=== PATIENT | male | born 1945 | race Caucasian/White ===

== ENCOUNTER → 2016-12-29 | Outpatient (CLI) | payer OTHER ==
--- NOTE | 2016-12-29 14:58 | RAD ---
EXAM: PET/CT SKULL BASE TO MID THIGH 12/29/2016. HISTORY: Liver mass, colon carcinoma. History of chemotherapy. COMPARISON: None. TECHNIQUE: CT was performed from the skull base through the mid thighs for the purposes of attenuation correction. 12.2 mCi F-18 fluorodeoxyglucose (FDG) was administered intravenously. After an uptake period, positron emission tomography was performed from the skull base through the mid thighs. The PET and CT data were fused and interpreted in combination a dedicated workstation. Blood glucose level was 104 mg/dL at the time of FDG administration. FINDINGS: Head and neck: No hypermetabolic lymphadenopathy or discrete mass. Chest: There is hypermetabolic mediastinal and hilar lymphadenopathy. Stock [employer]ender subcarinal lymph node measures 1.0 cm short axis with maximum SUV 4.2 associate sales representative metabolic hilar lymph node on the left demonstrate maximum SUV of 4.9. Abdomen and pelvis: There is physiologic uptake in both kidneys with excretion into the renal collecting system. There is a large hepatic segment 7 hypodensity with associated for opaque defect on the PET images measuring 3.3 x 2.8 cm series 3/image 230. There is a 1.3 cm cyst and central hepatic segment 7 series 3/image 236 there is additional hypodensity in inferior hepatic segment 6 measuring 0.5 cm series 3/image 255. Peripheral hepatic segment 4A hypodensity measures 0.7 cm series 3/image 235. Peripheral hepatic segment IVb hypodensity measures 0.6 cm series 3 cm image 248. There is intense FDG uptake in the rectum with maximum SUV of 4.4. There is mild ill-defined increased FDG activity near the anastomosis of the proximal sigmoid colon with maximum SUV of 4.5 and no soft tissue correlate on low-dose CT images. Musculoskeletal: No suspicious hypermetabolic mass. Uncorrected PET images: Uncorrected PET images do not demonstrate additional finding. Low-dose CT: 0.5 cm nonobstructive calculus in the inferior pole right kidney. Calcified atheromatous disease of the abdominal aorta. There are postsurgical changes at the base of the cecum and distal colon. Impression: 1. Mediastinal and bilateral hypermetabolic lymphadenopathy, which may be francisco javier metastatic disease from known colon carcinoma. 2. Hepatic segment 7 hypodensity, measuring up to 3.3 cm, with central photopenic defect and may have mild FDG uptake peripherally which is similar to background, however not definite. Finding is indeterminate and may represent treated tumor, primary liver malignancy, or benign liver lesion. Correlation with reported abdominal MRI is recommended. If findings are still equivocal, percutaneous biopsy is recommended for further evaluation. 3. Numerous additional subcentimeter hepatic hypodensities with no associated FDG uptake, may be too small to definitively resolved, and remain indeterminate. These should also be correlated to reported abdominal MR. 4. Mild FDG uptake at the distal colonic anastomosis with no associated soft tissue mass, may be post therapeutic. Attention on follow-up imaging is recommended. 5. Mild focal FDG uptake in the rectum with no associated soft tissue mass correlate. Clinical correlation is recommended and endoscopy could be performed for further evaluation.
== END | disposition home or self-care (01) ==
LOC: PETSC 09:33
PROVIDERS: ATTEND Internal Medicine Hematology & Oncology
DX: C18.9 Malignant neoplasm of colon, unspecified (principal); R59.1 Generalized enlarged lymph nodes; R16.0 Hepatomegaly, not elsewhere classified; Z92.21 Personal history of antineoplastic chemotherapy
CPT/HCPCS: 78815; A9552